=== PATIENT | female | born 1990 | race Caucasian/White ===

== ENCOUNTER 2018-01-02 23:12 | Emergency (ER) | payer OTHER ==
[~2018-01-02] VITALS: Ht 167.6 cm; Wt 58.0 kg
[2018-01-03 00:24] LABS: BASOPHILS # (AUTO) 0.05 x10^3/uL (0-0.1); BASOPHILS % (AUTO) 0 % (0-1); EOSINOPHILS # (AUTO) 0.03 x10^3/uL (0-0.4); EOSINOPHILS % (AUTO) 0 % (1-7); LYMPHOCYTES # (AUTO) 1.47 x10^3/uL (1-3.4); LYMPHOCYTES % (AUTO) 11 % (22-44); MD NO; MEAN CORPUSCULAR HEMOGLOBIN 28.3 pg (27.0-34.8); MEAN CORPUSCULAR HGB CONC 33.5 g/dL (32.4-35.8); MEAN CORPUSCULAR VOLUME 84.6 fL (80-100); MEAN PLATELET VOLUME 8.1 fL (7.4-10.4); MONOCYTES # (AUTO) 0.78 x10^3/uL (0.2-0.8); MONOCYTES % (AUTO) 6 % (2-9); NEUTROPHILS # (AUTO) 11.38 x10^3/uL (1.8-6.8); NEUTROPHILS % (AUTO) 83 % (42-75); PLATELET COUNT 227 x10^3/uL (130-400); RED BLOOD COUNT 4.31 x10^6/uL (3.82-5.3); RED CELL DISTRIBUTION WIDTH 15.1 % (9.6-15.2)
[2018-01-03 00:37] LABS: ALBUMIN 3.6 g/dL (3.4-5.0); ANION GAP 9 mmol/L (5-15); CALCIUM 8.3 mg/dL (8.5-10.1); CHLORIDE 109 mmol/L (98-107); CREATININE 0.75 mg/dL (0.55-1.02)
[2018-01-03 02:26] VITALS: BP 113/72
== END 2018-01-03 02:28 | disposition home or self-care (01) ==
LOC: ED 23:59
DX: O03.4 Incomplete spontaneous abortion without complication (principal); O00.90 Unspecified ectopic pregnancy without intrauterine pregnancy; Z87.891 Personal history of nicotine dependence
CPT/HCPCS: 36415; 76801; 80048; 82040; 84702; 85025; 86901; 99285

== ENCOUNTER 2018-12-15 11:28 | Emergency (ER) | payer OTHER ==
[~2018-12-15] VITALS: Ht 167.6 cm; Wt 53.5 kg
--- NOTE | 2018-12-15 11:52 | NUR ---
TO ROOM FROM LOBBY. NAD.
--- NOTE | 2018-12-15 11:58 | NUR ---
BREAK RN NOTE:FIRST CONTACT WITH PT. PT C/O UMBLICAL AREA ABD PAIN X 24 HOURS AND PAIN GETS WORSE AFTER PT EATS OR DRINKS. PT DENIES D/N/V AT THIS TIME. PT STATES " I'M IN PAIN WHEN I PEE, BUT NOT BURNING SENSATION, LIKE UTI." PT'S AOX4. RESPS EVEN AND UNLABORED. BP/SPO2 MONITORS IN PLACE. CALL LIGHT WITHIN REACH. AWAITING EDMD ASSESSMENT AT THIS TIME.
--- NOTE | 2018-12-15 12:15 | NUR ---
PA AT BEDSIDE TO ASSESS AND EXPLAIN POC AT THIS TIME.
[2018-12-15 12:16] VITALS: BP 102/58
--- NOTE | 2018-12-15 12:33 | NUR ---
PT INSTRUCTED TO PROVIDE URINE SAMPLE. PT AMB TO BR WITH STEADY GAIT.
[2018-12-15 12:37] LABS: BASOPHILS # (AUTO) 0.05 x10^3/uL (0-0.1); BASOPHILS % (AUTO) 1 % (0-1); EOSINOPHILS # (AUTO) 0.08 x10^3/uL (0-0.4); EOSINOPHILS % (AUTO) 1 % (1-7); LYMPHOCYTES # (AUTO) 1.64 x10^3/uL (1-3.4); LYMPHOCYTES % (AUTO) 22 % (22-44); MD NO; MEAN CORPUSCULAR HEMOGLOBIN 27.4 pg (27.0-34.8); MEAN CORPUSCULAR HGB CONC 32.5 g/dL (32.4-35.8); MEAN CORPUSCULAR VOLUME 84.3 fL (80-100); MEAN PLATELET VOLUME 8.4 fL (7.4-10.4); MONOCYTES # (AUTO) 0.98 x10^3/uL (0.2-0.8); MONOCYTES % (AUTO) 13 % (2-9); NEUTROPHILS # (AUTO) 4.74 x10^3/uL (1.8-6.8); NEUTROPHILS % (AUTO) 63 % (42-75); PLATELET COUNT 211 x10^3/uL (130-400); RED BLOOD COUNT 4.52 x10^6/uL (3.82-5.3); RED CELL DISTRIBUTION WIDTH 14.3 % (9.6-15.2)
--- NOTE | 2018-12-15 12:39 | NUR ---
REPORT GIVEN TO PRIMARY RN LAITH.
[2018-12-15 12:46] LABS: ALANINE AMINOTRANSFERASE 43 U/L (12-78); ALBUMIN 3.6 g/dL (3.4-5.0); ANION GAP 6 mmol/L (5-15); CALCIUM 8.4 mg/dL (8.5-10.1); CHLORIDE 109 mmol/L (98-107)
[2018-12-15 12:51] LABS: ALKALINE PHOSPHATASE 39 U/L (45-117); BILIRUBIN,TOTAL 0.7 mg/dL (0.2-1.0); CREATININE 0.73 mg/dL (0.55-1.02); TOTAL PROTEIN 6.8 g/dL (6.4-8.2)
[2018-12-15 13:19] LABS: CULTURE INDICATED? YES; MICROSCOPIC INDICATED
[2018-12-15] MEDS ORDERED: PHENAZOPYRIDINE 200 MG TABLET ONE (13:51)
[2018-12-15] MEDS ORDERED: PHENAZOPYRIDINE 200 MG TABLET PO ONE (14:00)
== END 2018-12-15 14:09 | disposition home or self-care (01) ==
LOC: ED 12:07
DX: N30.00 Acute cystitis without hematuria (principal)
CPT/HCPCS: 36415; 80053; 81001; 83690; 84703; 85025; 87077; 87086; 87186; 99283

== ENCOUNTER 2019-04-19 15:38 | Emergency (ER) | payer OTHER ==
[~2019-04-19] VITALS: Ht 167.6 cm; Wt 54.7 kg
--- NOTE | 2019-04-19 16:11 | NUR ---
TASK RN: PT TO ED FOR 1 EPISODE OF BLURRED VISION, SPEECH CHANGES, NAUSEA AND HEADACHE TODAY AT 1245. PT STATES SHE DRANK A SUGARY DRINK AND A FULL BOTTLE OF WATER AND ATE A GRANOLA BAR HOPING TO HELP WITH SYMPTOMS WITH NO RELIEF. ALL SYMPTOMS EXCEPT HEADACHE HAVE RESOLVED AT THIS TIME. PT CONNECTED TO MONITORS. VSS. EDMD PRESENT FOR ASSESSMENT. NO NEEDS EXPRESSED. CALL LIGHT WITHIN REACH. AWAITING ORDERS AT THIS TIME.
[2019-04-19 16:27] LABS: BASOPHILS # (AUTO) 0.05 x10^3/uL (0-0.1); BASOPHILS % (AUTO) 1 % (0-1); EOSINOPHILS # (AUTO) 0.08 x10^3/uL (0-0.4); EOSINOPHILS % (AUTO) 1 % (1-7); LYMPHOCYTES # (AUTO) 2.34 x10^3/uL (1-3.4); LYMPHOCYTES % (AUTO) 24 % (22-44); MD NO; MEAN CORPUSCULAR HGB CONC 33.1 g/dL (32.4-35.8); MEAN CORPUSCULAR VOLUME 87.5 fL (80-100); MEAN PLATELET VOLUME 8.4 fL (7.4-10.4); MONOCYTES # (AUTO) 0.69 x10^3/uL (0.2-0.8); MONOCYTES % (AUTO) 7 % (2-9); NEUTROPHILS # (AUTO) 6.62 x10^3/uL (1.8-6.8); NEUTROPHILS % (AUTO) 68 % (42-75); PLATELET COUNT 253 x10^3/uL (130-400); RED BLOOD COUNT 4.44 x10^6/uL (3.82-5.3); RED CELL DISTRIBUTION WIDTH 14.1 % (9.6-15.2)
[2019-04-19 16:37] LABS: ALBUMIN 3.9 g/dL (3.4-5.0); ANION GAP 7 mmol/L (5-15); CALCIUM 8.4 mg/dL (8.5-10.1); CHLORIDE 110 mmol/L (98-107); CREATININE 0.75 mg/dL (0.55-1.02)
--- NOTE | 2019-04-19 16:39 | NUR ---
REPORT FROM JOEL FITZPATRICK. ASSUMED CARE OF PATIENT AT THIS TIME, PATIENT TO CT VIA [facility]. [id number].
[2019-04-19 17:20] VITALS: BP 105/55
--- NOTE | 2019-04-19 17:20 | NUR ---
Patient/Caregiver given discharge instructions and they have confirmed that they understand the instructions. Patient ambulatory with steady gait.
== END 2019-04-19 17:22 | disposition home or self-care (01) ==
LOC: ED 16:57
DX: G43.B0 Ophthalmoplegic migraine, not intractable (principal); R41.0 Disorientation, unspecified
CPT/HCPCS: 36415; 70450; 80048; 82040; 84703; 85025; 93005; 99284